=== PATIENT | male | born 1995 | race Caucasian/White ===

== ENCOUNTER 2022-11-18 23:53 | Emergency (ER) | payer MEDICAID ==
[~2022-11-18] VITALS: Ht 170.2 cm; Wt 65.0 kg
[2022-11-18 23:57] VITALS: BP 112/66
== END 2022-11-19 00:44 | disposition left against medical advice (07) ==
LOC: ER 23:57
DX: Z53.21 Procedure and treatment not carried out due to patient leaving prior to being seen by health care provider (principal)
CPT/HCPCS: 99281; 99283